=== PATIENT | male | born 1980 | race Caucasian/White ===

== ENCOUNTER 2020-12-19 19:14 | Emergency (ER) | payer OTHER | END 2020-12-19 21:34 | disposition home or self-care (01) | LOC: NAV ERS 19:14 | DX: S93.601A Unspecified sprain of right foot, initial encounter (principal); I10 Essential (primary) hypertension; E11.9 Type 2 diabetes mellitus without complications; F17.210 Nicotine dependence, cigarettes, uncomplicated; W22.8XXA Striking against or struck by other objects, initial encounter ==

== ENCOUNTER 2025-04-24 08:48 | Emergency (ER) | payer OTHER, SELFPAY ==
[2025-04-24] MEDS ORDERED: Aspirin Chewable 81 MG TAB ONE (09:10)
[2025-04-24 09:15] LABS: Hematocrit 44.8 % (42.0-52.0); Hemoglobin 15.6 g/dL (14.0-18.0); Manual Diff?? NO; Mean Corpuscular Hemoglobin 32.1 pg (27.0-31.0); Mean Corpuscular Volume 92.5 fl (78.0-98.0); Platelet Count 233 10x3/uL (130-400); Red Blood Cell (RBC) Count 4.85 mill/uL (4.70-6.10); White Blood Cell (WBC) Count 15.0 10x3/uL (4.8-10.8)
[2025-04-24 09:16] LABS: #Basophils 0.1 thou/uL (0.0-0.2); #Eosinophils 0.1 thou/uL (0.0-0.7); #Lymphocytes 3.3 thou/uL (1.20-3.40); #Monocytes 1.3 thou/uL (0.11-0.59); #Neutrophils 10.5 thou/uL (1.40-6.50); %Basophils 0.7 % (0.0-1.0); %Eosinophils 0.6 % (0.0-10.0); %Lymphocytes 20.7 % (21.0-51.0); %Monocytes 8.3 % (0.0-10.0); %Neutrophils 69.7 % (42.0-75.0)
[2025-04-24 09:33] LABS: ALT (SGPT) 142 U/L (Less than 45); AST (SGOT) 335 U/L (11-34); Albumin 4.0 g/dL (3.1-4.5); Alkaline Phosphatase 78 U/L (40-110); Anion Gap 16 mmol/L (10-20); BUN (Urea Nitrogen) 15 mg/dL (8.9-20.6); Bilirubin, Total 0.5 mg/dL (0.3-1.2); Calc. Creatinine Clearance 0 mL/min (70-130); Calcium 9.9 mg/dL (7.8-10.44); Carbon Dioxide 23 mmol/L (22-29); Chloride 101 mmol/L (98-107); Globulin 2.8 g/dL (2.4-3.5); Glucose 215 mg/dL (70-105); Lipase 18 U/L (8-78); Potassium 4.4 mmol/L (3.5-5.1); Sodium 136 mmol/L (136-145)
[2025-04-24] MEDS ORDERED: Enoxaparin 100 MG (1 mL) SYRINGE ONE (10:12)
[2025-04-24] MEDS ORDERED: Pantoprazole 40 MG VIAL ONE ×2 (10:12→10:13)
[2025-04-24] MEDS ORDERED: Acetaminophen 500 MG TAB ONE (10:12)
[2025-04-24 10:54] LABS: INR-International Normal Ratio 1.0; PTT 25.9 sec (22.9-36.1); Prothrombin Time 12.8 sec (12.0-14.7)
== END 2025-04-24 11:03 | disposition short-term general hospital (02) ==
LOC: NAV ERS 08:48
DX: I21.4 Non-ST elevation (NSTEMI) myocardial infarction (principal); R74.01 Elevation of levels of liver transaminase levels; I10 Essential (primary) hypertension; E11.9 Type 2 diabetes mellitus without complications; F17.210 Nicotine dependence, cigarettes, uncomplicated; Z79.84 Long term (current) use of oral hypoglycemic drugs; Z79.899 Other long term (current) drug therapy
CPT/HCPCS: 71046; 80053; 83690; 84484; 85025; 85379; 85610; 85730; 93005; 94760; 96372; 96374; J1650; J2470; J7030